=== PATIENT | male | born 1980 | race Hispanic/Latino ===

== ENCOUNTER 2018-07-22 00:23 | Inpatient (IN) | payer OTHER, SELFPAY ==
[2018-07-22] MEDS ORDERED: Tranexamic Acid 1,000 MG/10 ML VIAL ONE (00:28)
[2018-07-22] MEDS ORDERED: Fentanyl 100 MCG/2 ML VIAL ONE ×2 (00:28→01:06)
[2018-07-22] MEDS ORDERED: CEFAZOLIN 1 GM VIAL ONE (00:28)
[2018-07-22] MEDS ORDERED: Midazolam HCl 5 mg/ml Vial ONE (00:38)
[2018-07-22 01:01] LABS: #Monocytes 0.9 thou/uL (0.11-0.59); #Neutrophils 15.6 thou/uL (1.40-6.50); %Basophils 0.1 % (0.0-1.0); %Eosinophils 0.1 % (0.0-10.0); %Lymphocytes 5.4 % (21.0-51.0); %Monocytes 5.4 % (0.0-10.0); Hemoglobin 14.3 g/dL (14.0-18.0); Mean Corpuscular HGB CONC 35.2 g/dL (32.0-36.0); Mean Corpuscular Volume 90.9 fL (78.0-98.0); Mean Platelet Volume 7.6 fL (7.4-10.4); Platelet Count 235 thou/uL (130-400); RBC Distribution Width 10.7 % (11.5-14.5); Red Blood Cell (RBC) Count 4.48 mill/uL (4.70-6.10); White Blood Cell (WBC) Count 17.5 thou/uL (4.8-10.8)
[2018-07-22] MEDS ORDERED: fentaNYL Citrate/PF 2,000 MCG in Sodium Chloride 0.9% 60 ML IV SCH ×3 (01:12→20:03)
[2018-07-22] MEDS ORDERED: Adacel (T-DAP) 0.5 ML SYRINGE ONE (01:17)
[2018-07-22 01:18] LABS: Bilirubin Negative (Negative); Blood, Urine Negative (Negative); Clarity CLEAR (Clear); Glucose, Urine (Dipstick) 500 mg/dL (Negative); Leukocyte Negative (Negative); Nitrite Negative (Negative); Protein, Urine (Dipstick) 30 mg/dL (Neg-Trace); Specific Gravity, Urine 1.019 (1.002-1.036)
[2018-07-22 01:21] LABS: Bacteria/HPF None Seen HPF (None Seen); Pathc Cast-AUWi Flag 1.76 (0-2.49); RBC/HPF 0-3 HPF (0-3); WBC/HPF 0-3 HPF (0-3)
[2018-07-22 01:21] LABS: ALT (SGPT) 16 U/L (8-55); AST (SGOT) 12 U/L (5-34); Albumin 4.1 g/dL (3.5-5.0); Alkaline Phosphatase 87 U/L (40-150); Anion Gap 17 mmol/L (10-20); BUN (Urea Nitrogen) 10 mg/dL (8.9-20.6); Bilirubin, Total 0.5 mg/dL (0.2-1.2); Calc. Creatinine Clearance 0 mL/min (70-130); Calcium 8.6 mg/dL (7.8-10.44); Carbon Dioxide 18 mmol/L (22-29); Chloride 108 mmol/L (98-107); Estimated GFR-MDRD 90; Globulin 2.6 g/dL (2.4-3.5); Glucose 196 mg/dL (70-105); Magnesium 1.8 mg/dL (1.6-2.6); Potassium 3.1 mmol/L (3.5-5.1); Protein, Total 6.7 g/dL (6.0-8.3); Sodium 140 mmol/L (136-145)
[2018-07-22 01:22] LABS: Acetaminophen Less than 6.0 mcg/mL (10.0-30.0); Alcohol Less than 10 mg/dL (Less than 10); Salicylate Less than 8.0 mg/dL (15.0-30.0)
[2018-07-22 01:22] LABS: Actual Bicarbonate (HCO3a) 16.7 mEq/L (22-28); Analyzer IN Cardio ER; Base Excess (BEa) -7.2 mEq/L (-2.0 to +3.0); CO2 Tension 29.9 mmHg (35.0-45.0); Calcium, Ionized 1.12 mmol/L (1.12-1.30); Carboxyhemoglobin (COHb) 0.1 gm% (0.0-3.0); Hemoglobin (Hb) 14.8 g/dL (14.0-18.0); O2 Tension (PaO2) 239.4 mmHg (80.0-100.0); Potassium - ABG Lab 3.49 mmol/L (3.70-5.30); pH, Arterial 7.37 (7.35-7.45)
[2018-07-22 01:27] LABS: Amphetamine Not Detected (NotDetected); Barbiturates Screen Not Detected (NotDetected); Benzodiazepine Screen Not Detected (NotDetected); Cocaine Metabolite Screen Not Detected (NotDetected); Medtox Control Line Valid? VALID (VALID); Medtox Reader # READER 1; Methadone Not Detected (NotDetected); Methamphetamine Not Detected (NotDetected); Opiate Screen Not Detected (NotDetected); Oxycodone Screen Not Detected (NotDetected); Phencyclidine (PCP) Not Detected (NotDetected); THC/Cannabinoid Screen Not Detected (NotDetected); Tricyclic Screen Not Detected (NotDetected)
[2018-07-22 01:30] LABS: Hyaline Casts/LPF 0-3 HYALINE CAST LPF (0-3 Hyaline); Renal Epithelial None Seen HPF (0-3); Transitional Epithelial NONE SEEN HPF (0-3)
[2018-07-22 01:31] LABS: ALV-art Gradient 79.725 (0-20); Puncture Site RRA
[2018-07-22] MEDS ORDERED: Dextrose 50% Abboject 50 ML SYRINGE SLOW IVP PRN (01:53)
[2018-07-22] MEDS ORDERED: Dextrose 5% in Water 1,000 ML IV PRN (01:53)
[2018-07-22] MEDS ORDERED: Ondansetron PF 4 MG/2 ML Vial IVP PRN (02:04)
[2018-07-22] MEDS ORDERED: hydrALAZINE 20 MG/ML VIAL SLOW IVP PRN (02:04)
[2018-07-22] MEDS ORDERED: DC Sedation Protocol FS ONE (02:14)
[2018-07-22 03:04] LABS: Hemoglobin 14.3 g/dL (14.0-18.0)
[2018-07-22] MEDS ORDERED: DISCONTINUE PREVIOUS NARCOTIC PAIN MEDICATIONS AND BENZODIAZEPINES FS SCH ×2 (03:48→20:03)
[2018-07-22] MEDS ORDERED: Propofol BOLUS 1,000 MG/100 ML VIAL IV PRN ×2 (03:48→20:03)
[2018-07-22] MEDS ORDERED: Fentanyl CADD 250 ML IVPB SCH (03:48)
[2018-07-22] MEDS ORDERED: Propofol 1,000 MG/100 ML VIAL IV PRN ×2 (03:48→20:03)
[2018-07-22] MEDS ORDERED: Morphine 2 MG/ML SYRINGE SLOW IVP PRN ×2 (03:48→20:03)
[2018-07-22] MEDS ORDERED: Fentanyl BOLUS 250 ML IVPB PRN ×2 (03:48→20:03)
[2018-07-22] MEDS ORDERED: Lorazepam 2 MG/ML VIAL SLOW IVP PRN ×2 (03:48→20:03)
--- NOTE | 2018-07-22 04:12 | HP ---
This is Lisy Valero NP dictating a report for Jm Meehan MD. HISTORY OF PRESENT ILLNESS: This is a 38-year-old gentleman who was a transfer from [facility] with 2 self-inflicted deep punctures to bilateral antecubital. The patient is currently incarcerated in the [facility]. The patient was in the shower when he did the self-inflicted lacerations and punctures, unknown what the patient used. It was reported that the patient had major blood loss in the shower, unable to estimate the exact amount. The patient had 3 tourniquets applied to the left arm and 2 to the right arm. The patient received 2 units of blood prior to transport to [facility]. The patient also had a right femoral central line placed and also bilateral humeral IOs. The patient also received a tetanus and Ancef. The patient also received TXA. It was also reported that the patient has been incarcerated for a while on suicidal watch. The patient's bilateral arms were sutured in the emergency room. All bleeding was controlled after tourniquets were taken down. The patient was also intubated in [place]. The patient remains sedated on the ventilator currently. PAST MEDICAL HISTORY: Unable to obtain. SOCIAL HISTORY: Unable to obtain as the patient is intubated. PAST SURGICAL HISTORY: Unable to obtain. ALLERGIES: NO KNOWN DRUG ALLERGIES DOCUMENTED, BUT THIS IS UNCONFIRMED. UNKNOWN IF THE PATIENT TAKES ANY MEDICATIONS. REVIEW OF SYSTEMS: Unable to obtain due to the patient being intubated. PHYSICAL EXAMINATION: VITAL SIGNS: Blood pressure 104/63, pulse 90, respirations per ventilator assist. SpO2 100% on ventilator. GENERAL: The patient is sedated, afebrile. The patient covered with facial tattoos and body tattoos. HEENT: Head is atraumatic and normocephalic. Pupils equal, round, and reactive. NECK: Trachea is midline. There is no JVD. RESPIRATORY: Bilateral equal breath sounds. No wheezing, rales, or rhonchi. CHEST: Movement is symmetrical. No obvious wounds to the chest. Tattoos noted. CARDIOVASCULAR: Regular rate and rhythm. No heart murmurs noted. No pedal edema. ABDOMEN: Soft, nontender, nondistended. Active bowel sounds. EXTREMITIES: Upper extremities; femoral central line placed to right arm. The patient with self and grieved wounds to the forearm, superficial. No active bleeding. Both arm wounds have been repaired and covered with dressings clean, dry, and intact. NEUROLOGIC: The patient is intubated, sedated. The patient withdraws to pain. LABORATORY DATA: WBC 17.5, RBC 4.48, hemoglobin 14.3, hematocrit 40.7, platelets 235. ABG; pH 7.37, bicarb 16.7, CO2 29.9, pO2 239, base excess -7.2. Sodium 140, potassium 3.1, chloride 108, carbon dioxide 18, BUN 10, creatinine 0.94, estimated GFR 90, glucose 196, calcium 8.6, magnesium 1.8. Urinalysis unremarkable. Toxicology screen is negative. DIAGNOSTIC DATA: Chest x-ray, ET tube in place, the tip is at the juan f. No acute findings. CT angio of upper extremities pending. IMPRESSION: 1. Suicidal ideation. 2. Self-inflicted wounds, possible arterial laceration, bilateral arms. 3. Acute respiratory failure. 4. Hypokalemia. PLAN: We will admit the patient to the critical care unit. The patient will remain on the ventilator overnight, will be on sedation protocol. Repeat ABG in the morning. We will also repeat labs in the morning. The patient will be on suicidal watch and guards will be at bedside. CTA results pending. If signs of arterial laceration, Cardiothoracic Surgery will be consulted. We will replace the patient's electrolytes. Plan will be discussed with attending physician after this dictation. Job ID: [id number]
[2018-07-22 05:07] LABS: Phosphorus 2.3 mg/dL (2.3-4.7)
[2018-07-22 05:11] LABS: ALT (SGPT) 20 U/L (8-55); AST (SGOT) 32 U/L (5-34); Albumin 4.2 g/dL (3.5-5.0); Alkaline Phosphatase 92 U/L (40-150); Anion Gap 18 mmol/L (10-20); BUN (Urea Nitrogen) 9 mg/dL (8.9-20.6); Bilirubin, Total 0.4 mg/dL (0.2-1.2); Calc. Creatinine Clearance 0 mL/min (70-130); Calcium 8.4 mg/dL (7.8-10.44); Carbon Dioxide 18 mmol/L (22-29); Chloride 108 mmol/L (98-107); Estimated GFR-MDRD 82; Globulin 2.7 g/dL (2.4-3.5); Glucose 141 mg/dL (70-105); Magnesium 1.9 mg/dL (1.6-2.6); Potassium 3.5 mmol/L (3.5-5.1); Protein, Total 6.9 g/dL (6.0-8.3); Sodium 140 mmol/L (136-145)
[2018-07-22 05:26] VITALS: BMI 25.2
[2018-07-22 06:58] LABS: Actual Bicarbonate (HCO3a) 17.7 mEq/L (22-28); Base Excess (BEa) -6.8 mEq/L (-2.0 to +3.0); CO2 Tension 32.3 mmHg (35.0-45.0); Calcium, Ionized 1.13 mmol/L (1.12-1.30); Carboxyhemoglobin (COHb) 0.4 gm% (0.0-3.0); Hemoglobin (Hb) 13.1 g/dL (14.0-18.0); O2 Tension (PaO2) 142.1 mmHg (80.0-100.0); Potassium - ABG Lab 4.24 mmol/L (3.70-5.30); pH, Arterial 7.36 (7.35-7.45)
[2018-07-22 07:04] LABS: Puncture Site RR
[2018-07-22 07:05] LABS: ALV-art Gradient 31.425 (0-20)
[2018-07-22] MEDS: Sodium Chloride 0.9% 1,000 ML IV SCH ×3 (07:10→18:11)
--- NOTE | 2018-07-22 08:26 | RAD ---
SEMIUPRIGHT PORTABLE FRONTAL CHEST RADIOGRAPH: DATE: 07/22/2018. COMPARISON: 07/21/2018. HISTORY: Intubated patient. FINDINGS: Endotracheal tube and nasogastric tube in proper position. No focal consolidation or alveolar edema. Heart and mediastinal contours are unremarkable. IMPRESSION: Endotracheal tube and nasogastric tube in proper position with no focal consolidation or evidence of pulmonary edema. POS: [facility]
[2018-07-22 09:00] LABS: Hemoglobin 12.3 g/dL (14.0-18.0)
--- NOTE | 2018-07-22 09:47 | CT ---
FPRELIMINARY REPORT/[facility]/EMERGENCY AFTER HOURS PROCEDURE: Addendum created by True Demarco MD on 07/22/2018 3:42 AM Central Time ([place] & [place]) Findings were discussed with RAMIRO CONDON at 07/22/2018 3:41 AM CDT. Initial Report created on 07/22/2018 3:34 AM Central Time ([place] & [place]) EXAM: CTA Left Upper Extremity With Contrast EXAM DATE/TIME: 07/22/2018 2:05 AM CLINICAL HISTORY: 38 years old, male; Injury or trauma; Injury history: Self inflicted laceration; Initial encounter; E lbow and arm, lower; Bilateral; Patient HX: 38 yo m transfer from [place] presents to ed via ems with C/O bilateral forearm lacerations. Ems reports PT is prisoner found in cell at [facility] with self-inflicted lacerations to bilateral forearms. Ems denies any other known medical issues. PT given 2 units of blood in route. Tourniquets applied at 22: 34; Additional info: Ordering doctor also request ed venous phase images which are included TECHNIQUE: Imaging protocol: Axial CTA of the Left upper extremity with intravenous contrast material, including non-contrast images if performed. 3D rendering: MIP reconstructed images were created and reviewed. COMPARISON: No relevant prior studies available. FINDINGS: Arm veins: Forearm/antecubital veins appear intact. Left axillary artery: No acute findings. No occlusion or significant stenosis. Left brachial artery: No acute findings. No occlusion or significant stenosis. Left Radial artery: No acute findings. No occlusion or significant stenosis. Left ulnar artery: No acute findings. No occlusion or significant stenosis. Bones/joints: No acute fracture. No dislocation. Soft tissues: There is subcutaneous air noted along the proximal medial LEFT forearm at the antecubital fossa consistent with laceration. No CT evidence for foreign body. IMPRESSION: 1. There is subcutaneous air noted along the proximal medial LEFT forearm at the antecubital fossa consistent with laceration. 2. Radial/brachial artery at the antecubital fossa are intact without evidence of contrast extravasat ion. 3. Forearm/antecubital veins appear intact. Thank you for allowing us to participate in the care of your patient. Dictated and Authenticated by: True Demarco MD 07/22/2018 3:34 AM Central Time ([place] & [place]) FINAL REPORT EXAM: CT angiogram left upper extremity CT venogram left upper extremity HISTORY: Forearm laceration. Injury. COMPARISON: None CT angiogram and CT venogram of the left upper extremity was performed after the intravenous adminis tration of contrast. 3-D rendering was provided. The findings and impression are concordant with the preliminary report. Transcribed Date/Time: 07/22/2018 9:47 AM
--- NOTE | 2018-07-22 09:52 | CT ---
FPRELIMINARY REPORT/[facility]/EMERGENCY AFTER HOURS PROCEDURE: Addendum created by True Demarco MD on 07/22/2018 3:42 AM Central Time ([place] & [place]) Soft tissue defect at the wrist probably artifactual. There is soft tissue laceration of the RIGHT antecubital fossa however the vessels appear intact. Findings were discussed with RAMIRO CONDON at 07/22/2018 3:41 AM CDT. Initial Report created on 07/22/2018 3:27 AM Central Time ([place] & [place]) EXAM: CTA Right Upper Extremity With Contrast EXAM DATE/TIME: 07/22/2018 2:05 AM CLINICAL HISTORY: 38 years old, male; Injury or trauma; Injury history: Self inflicted laceration; Initial encounter; E lbow and arm, lower; Bilateral; Patient HX: 38 yo m transfer from [place] presents to ed via ems with C/O bilateral forearm lacerations. Ems reports PT is prisoner found in cell at [facility] with self-inflicted lacerations to bilateral forearms. Ems denies any other known medical issues. PT given 2 units of blood in route. Tourniquets applied at 22: 34; Additional info: Ordering doctor also request ed venous phase images which are included. TECHNIQUE: Imaging protocol: Axial CTA of the Right upper extremity with intravenous contrast material, including non-contrast images if performed. 3D rendering: MIP reconstructed images were created and reviewed. COMPARISON: No relevant prior studies available. FINDINGS: Right axillary artery: No acute findings. No occlusion or significant stenosis. Right brachial artery: No acute findings. No occlusion or significant stenosis. Right radial artery: No acute findings. No occlusion or significant stenosis. Right ulnar artery: The proximal RIGHT ulnar artery appears intact however distally the ulnar artery is not well-visualized at the wrist ; trauma/laceration is possible. Other arteries: Interosseous artery appears intact without evidence of trauma. Upper Extremity Veins: Veins of the forearm appear intact Soft tissues: There is skin defect at the distal RIGHT forearm suggestive of laceration. There is swelling/edema of the RIGHT forearm; underlying hematoma is possible. IMPRESSION: 1. There is skin defect at the distal RIGHT forearm suggestive of laceration. 2. The proximal RIGHT ulnar artery appears intact however distally the ulnar artery is not wellvisual ized at the wrist; trauma/laceration is possible. 3. There is swelling/edema of the RIGHT forearm; underlying hematoma is possible. Thank you for allowing us to participate in the care of your patient. Dictated and Authenticated by: True Demarco MD 07/22/2018 3:27 AM Central Time ([place] & [place]) FINAL REPORT EXAM: CT angiogram right upper extremity CT venogram right upper extremity HISTORY: Forearm laceration COMPARISON: None FINDINGS: There appears to be a skin defect along the antecubital fossa with edema at the level of th e elbow. There is some hypoattenuation and small amount of hemorrhage along the biceps muscle. IMPRESSION: No evidence for acute vascular injury. Transcribed Date/Time: 07/22/2018 9:51 AM
[2018-07-22] MEDS ORDERED: Magnesium Sulfate 2 GM, Potassium Chloride 40 MEQ in Sodium Chloride 0.9% 250 ML 250 ML IVPB SCH (10:15)
[2018-07-22] MEDS: Famotidine/PF 20 mg/2ml Vial SLOW IVP SCH ×2 (11:02→21:40)
--- NOTE | 2018-07-22 15:45 | PRG ---
DATE OF SERVICE: 07/22/2018 SUBJECTIVE: Jm Moreira was seen this morning. He is accompanied by a [facility] nurse. The patient had a previous suicidal ideation, was on suicide precautions at the [facility]. He was given a razor to shave and cut himself. He had prolonged tourniquet placement, transferred from [facility] to [place] into this hospital. His wounds were closed in this hospital. He has small wounds with 2 to 3 sutures in antecubital area, both arms, and a scratch on his right arm. The patient does have washburn in his upper arms from a tourniquet. This morning, he is on the ventilator, but he was extubated and has done well after that. His Greene catheter was removed. The patient was witnessed by Lianet, his nurse, flexing his arms, trying to escape the restraints when he was intubated and sedated. Once extubated, however, the patient states he cannot move his arms and he cannot move his hands. He has good Dopplerable radial pulses. I did evaluate him and he had variable flexion and extension of his upper arms. He was not able to move his hands. He did not have any response to pain in his fingers. OBJECTIVE: LUNGS: Clear to auscultation. CARDIAC: Regular rate and rhythm without murmur or gallop. ABDOMEN: Soft, nontender. ASSESSMENT AND PLAN: Possible nerve palsy due to tourniquet use in the field. There is no operative intervention for this. This will improve with time. Some of this is for secondary gain, but he perhaps does have some tourniquet problems. CTA performed both arms, upper extremity was normal with intact pulses. Clinically, his pulses are intact and his hands are warm. I have discussed with Dr. Schwarz and Hand Surgery, who lend their opinion as a secondary evaluation. There is no apparent nerve damage anatomically from the wounds and these would not account for his problems, these are tourniquet problems if at all. Job ID: [id number]
[2018-07-22] MEDS ORDERED: Ventilator Sedation Protocol 1 EACH FS SCH (20:00)
[2018-07-22 20:23] LABS: Hemoglobin 12.9 g/dL (14.0-18.0)
[2018-07-22] MEDS ORDERED: carBAMazepine 200 MG TAB PO SCH (21:30)
[2018-07-22] MEDS: Senokot S 8.6-50 MG TAB PO SCH (21:40)
[2018-07-22] MEDS: Ibuprofen 800 MG TAB PO SCH (21:40)
[2018-07-22] MEDS ORDERED: traMADol HCl 50 MG TAB PO PRN (22:17)
[2018-07-23] MEDS: Acetaminophen 500 MG TAB PO SCH ×5 (00:26→23:33)
[2018-07-23 03:18] LABS: Hemoglobin 11.5 g/dL (14.0-18.0)
[2018-07-23] MEDS: Sodium Chloride 0.9% 1,000 ML IV SCH (05:07)
[2018-07-23] MEDS: Ibuprofen 800 MG TAB PO SCH ×3 (05:28→23:33)
[2018-07-23] MEDS: Polyethylene Glycol 3350 17 GM Packet PO SCH (09:00)
[2018-07-23] MEDS: Famotidine/PF 20 mg/2ml Vial SLOW IVP SCH ×2 (09:01→21:03)
[2018-07-23] MEDS: Senokot S 8.6-50 MG TAB PO SCH ×2 (09:01→21:03)
--- NOTE | 2018-07-23 16:58 | PRG ---
DATE OF SERVICE: 07/23/2018 SUBJECTIVE: Mr. Moreira is a 38-year-old man, an inmate of a correctional facility. The patient was brought to the emergency department following a self-inflicted injury to bilateral elbows. This was with a razor with reportedly large amount of blood loss requiring proximal tourniquet application. The patient was evaluated, finding no vascular injuries. Wounds have been closed. The patient is able to move his upper arm, however, had no intrinsic movement of fingers on both hands. He is able to perceive pain and touch. The motor function however is absent. He has remained hemodynamically stable otherwise. PHYSICAL EXAMINATION: VITAL SIGNS: Current vital signs today include blood pressure 119/76, pulse is 82, respiratory rate is 20, temperature is 98 degrees Fahrenheit, oxygen saturation is 95% on room air. HEENT: Normocephalic and atraumatic. HEART: Reveals regular rate and rhythm. No murmurs or gallops auscultated. LUNGS: Clear to auscultation bilaterally. Breathing, regular and nonlabored. ABDOMEN: Soft, nontender, and nondistended. EXTREMITIES: 2+ radial and pedal pulses bilaterally. No ankle edema is present. NEUROLOGICAL: Cranial nerves 2 through 12 grossly intact bilaterally. He has no focal neurologic deficits present. MUSCULOSKELETAL: Reveals 5/5 bilateral lower extremity strength. He has 2/5 muscle strength in the bilateral forearm and hands. He has good shoulder shrugs. IMPRESSION: 1. Post injury day #1, status post self-inflicted wound to both antecubital fossa. 2. Bilateral tourniquet induced nerve palsy. PLAN: 1. Continue with physical and occupational therapy. 2. We will ask Neurology to evaluate the patient to exclude malingering due to the patient's history. 3. There is no acute surgical indication for this patient at this time, nevertheless. Job ID: [id number]
[2018-07-23] MEDS ORDERED: carBAMazepine 200 MG TAB PO SCH (17:00)
[2018-07-23] MEDS ORDERED: Ondansetron ODT 4 MG TAB PO PRN (21:45)
--- NOTE | 2018-07-23 21:54 | CON ---
DATE OF CONSULTATION: 07/23/2018 CONSULTING PHYSICIAN: Trauma Service. IMPRESSION: The patient appears to be malingering, bilateral upper extremity paresis that is nonanatomic. PLAN: The patient will be discharged to his discretion. HISTORY OF PRESENT ILLNESS: Mr. Moreira is a 38-year-old man who is an inmate. He apparently inflicted some wounds to his arms, which necessitated his admission. There was no neuronal injury according to Trauma Service. The patient is reporting that he is unable to move either upper extremity other than at the deltoid level. He also reports some tingling in his hands and subjective pain to minor palpation. PAST MEDICAL HISTORY: Otherwise negative. ALLERGIES: NONE REPORTED. SOCIAL HISTORY: He is an inmate. FAMILY HISTORY: Noncontributory. REVIEW OF SYSTEMS: A 10-system review of systems is otherwise negative. PHYSICAL EXAMINATION: GENERAL: He is a well-nourished, middle-aged man, lying in bed in restraints. HEENT: Pupils are equal and reactive. Conjunctivae are clear. Oropharynx is clear. NECK: Supple. EXTREMITIES: There are some small incisions in both upper extremities that are sutured. NEUROLOGIC: He is alert and cooperative. His speech is fluent and clear. He has antigravity strength at the deltoid, but has give-way weakness when tested to confrontation, could not get him to move either biceps, triceps, wrist extensors, wrist flexors, finger flexors, or finger extensors. He would elevate his arms off the bed in front of him, but otherwise I could not get him to do anything purposeful. There is no lower extremity weakness present. SUMMARY: Given the proximal and distal weakness pattern that he is , this is clearly malingering, not much I can offer. Job ID: [id number]
[2018-07-24] MEDS: Acetaminophen 500 MG TAB PO SCH ×2 (05:37→15:46)
[2018-07-24] MEDS: Ibuprofen 800 MG TAB PO SCH ×2 (05:37→15:46)
[2018-07-24] MEDS: Famotidine/PF 20 mg/2ml Vial SLOW IVP SCH (09:18)
[2018-07-24] MEDS: Polyethylene Glycol 3350 17 GM Packet PO SCH (09:18)
[2018-07-24] MEDS: Senokot S 8.6-50 MG TAB PO SCH (09:19)
[2018-07-24 12:36] VITALS: BP 146/88; TEMP 98.1
--- NOTE | 2018-07-24 14:37 | PQF ---
CLINICAL DOCUMENTATION IMPROVEMENT CLARIFICATION FORM: ICD-10 Updated PLEASE DO AN ADDENDUM TO THE PROGRESS NOTE WITH ANY DOCUMENTATION UPDATES OR ADDITIONS AND CARRY THROUGH TO DC SUMMARY. THANK YOU. DATE: 07/24/18 ATTN: DR. CHAVEZ Please exercise your independent, professional judgment in responding to the clarification form. Clinical indicators are provided on the bottom of this form for your review Please check appropriate box(s) to clarify if the following diagnosis has been ruled in or ruled out: "HEMORRHAGIC SHOCK" [ ] Ruled in diagnosis [ x ] Continue to treat [ ] Resolved [ ] Ruled out diagnosis [ ] Other diagnosis [ ] Unable to determine In addition, please specify: Present on Admission (POA): [x ] Yes [ ] No [ ] Unable to determine For continuity of documentation, please document condition throughout progress notes and discharge summary. Thank You. CLINICAL INDICATORS - SIGNS / SYMPTOMS / LABS ER NOTE: "HEMORRHAGIC SHOCK" PULSE 112 BP 84/66 RR 22 RISKS: SELF-INFLICTED LACERATIONS TO ARMS / SUICIDE ATTEMPT TREATMENT: IV FLUIDS (ER) TRANSEXAMIC ACID IV (ER) TRAUMA SURGERY CONSULT ON VENTILATOR SAP Bung Driver [employer] Winform Viewer(This form is maintained as a part of the permanent medical record) 2014 [employer]. All Rights Reserved BESSY [email or web address] Office: [phone] [place]
--- NOTE | 2018-07-24 15:41 | DIS ---
DATE OF ADMISSION: 07/22/2018 DATE OF DISCHARGE: 07/24/2018 ADMISSION DIAGNOSIS: Self-inflicted stab wounds to bilateral ACs. DISCHARGE DIAGNOSIS: Self-inflicted stab wounds to bilateral ACs. CONSULTING PHYSICIAN: Dr. Ibarra, Neurology. PROCEDURES: None. HOSPITAL COURSE: The patient is a 38-year-old male patient, who presented from outside emergency department. He was incarcerated and on suicide watch, but was given a razor to shave and subsequently used it to make a puncture wounds to his bilateral ACs. He was found unresponsive and hypotensive. Tourniquets were applied and he did receive blood products. He was also intubated at the outside hospital. On arrival to our emergency department, the patient received additional blood and bilateral upper extremity tourniquets were removed. Wounds were explored, and no major vasculature was injured. CTA of the bilateral upper extremities was also completed, which showed no major vascular injury. Bilateral upper extremities were sutured and wrapped. He was admitted to the ICU due to intubation. On post arrival day #1, the patient was extubated and moved to the regular nursing floor. He did report that he was not able to move his hands. It was discussed that this may be due to a nerve palsy from extended tourniquet use. Subsequently, Dr. Ibarra was consulted with Neurology for evaluation of his bilateral upper extremities. Upon his evaluation, he noted that the distribution of nerve paralysis was not consistent with any injury pattern. He did recommend that the patient was malingering and had no intention of following the patient any further. DISCHARGE DISPOSITION: Skilled Nursing. DISCHARGE CONDITION: Satisfactory. PHYSICAL EXAMINATION: VITAL SIGNS: Temperature 98.1, pulse 93, respirations 18, oxygen saturation 94% on room air, and blood pressure 146/88. GENERAL: Well-appearing middle-aged male, sitting up in bed with no signs of acute distress. LUNGS: Equal chest rise and fall. Clear breath sounds bilaterally. No signs of acute respiratory distress. HEART: Regular rate and rhythm. No murmurs, gallops, or rubs. GASTROINTESTINAL: Soft, nontender, and nondistended. EXTREMITIES: 2+ pulses in all extremities. No significant swelling noted. NEUROLOGIC: He has 5/5 strength in the bilateral upper extremities with motion of the elbow, but reports he has no function in the bilateral liaison officer. Gross sensation is intact. DISCHARGE INSTRUCTIONS: The patient is discharged to assisted. Activity as tolerated with regular diet. No therapy. Re-equipment is needed. He needs to have his bilateral upper extremity sutures removed around 08/01/2018. He was instructed to keep his wounds clean, dry, and intact. DISCHARGE MEDICATIONS: Include Tylenol, ibuprofen, and his home Tegretol. FOLLOWUP APPOINTMENTS: He has no followup appointments with Dr. Rivas or Dr. Ibarra. He is to follow up with the assisted physician as needed. This is merely a summary of the patient's hospitalization. For full details, please see his medical record in its entirety. Job ID: [id number]
[2018-07-24] MEDS ORDERED: Famotidine 40 MG/5 ML Oral Suspension PO SCH (21:00)
== END 2018-07-24 15:49 | DRG 604 ==
LOC: ERS 00:23 → EEVIPCON 00:23 → CCU 01:53 → SURG A 20:47
PROVIDERS: ADMIT Specialist; ATTEND Specialist
PROC: 5A1935Z Respiratory Ventilation, Less than 24 Consecutive Hours (ICD-10-PCS; principal; 2018-07-22)
PROC: 0HQEXZZ Repair Left Lower Arm Skin, External Approach (ICD-10-PCS; 2018-07-22)
PROC: 0HQDXZZ Repair Right Lower Arm Skin, External Approach (ICD-10-PCS; 2018-07-22)
DX: S51.012A Laceration without foreign body of left elbow, initial encounter (principal); J96.00 Acute respiratory failure, unspecified whether with hypoxia or hypercapnia; T79.4XXA Traumatic shock, initial encounter; S51.011A Laceration without foreign body of right elbow, initial encounter; X78.8XXA Intentional self-harm by other sharp object, initial encounter; Y93.E1 Activity, personal bathing and showering; Y92.89 Other specified places as the place of occurrence of the external cause; E87.6 Hypokalemia; I95.9 Hypotension, unspecified; Z76.5 Malingerer [conscious simulation]
CPT/HCPCS: 12034; 36415; 36430; 71045; 80053; 80306; 80307; 81003; 81015; 82805; 83735; 84100; 85014; 85018; 85025; 86850; 86900; 86901; 90471; 90715; 94002; 96361; 96365; 96366; 96367; 96375; 96376; G0390; J0690; J2250; J2704; J3010; J3475; J3480; J7050; Q0162; S0028